=== PATIENT | female | born 1990 | race Caucasian/White ===

== ENCOUNTER 2021-05-07 13:02 | Emergency (ER) | payer OTHER ==
[~2021-05-07] VITALS: Ht 165.1 cm; Wt 77.1 kg
[2021-05-07] MEDS ORDERED: AVIANE1 EACH PO (13:16)
[2021-05-07] MEDS ORDERED: OMEPRAZOLE20 MG PO (14:58)
--- NOTE | 2021-05-07 17:36 | EKG ---
[facility] [address] [facility] [place], [place] [address] Signed Normal sinus rhythm ST \T\ T wave abnormality, consider lateral ischemia Abnormal ECG No previous ECGs available Confirmed by GAURANG STEWART MD ([id number]) on 05/07/2021 5:35:56 PM Electronically Signed By: GAURANG STEWART MD 05/07/21 1736 PATIENT NAME: LAURAFLACO Electrocardiogram DATE OF : [birth year] PHYSICIAN: GAURANG STEWART MD REPORT #: [id number] REPORT IS CONFIDENTIAL AND NOT TO BE RELEASED WITHOUT AUTHORIZATION
== END 2021-05-07 15:13 | disposition home or self-care (01) ==
LOC: ED 13:02
DX: K21.9 Gastro-esophageal reflux disease without esophagitis (principal)
CPT/HCPCS: 71045; 80053; 83690; 84484; 85025; 93005; 93010; 99285-25

== ENCOUNTER 2024-03-15 07:03 | Day surgery (SDC) | payer OTHER ==
[2024-03-09 09:13] VITALS: BP 119/69
[~2024-03-15] VITALS: Ht 165.1 cm; Wt 93.2 kg
[~2024-03-15 07:03] MED LIST: AVIANE1 EACH PO; B COMPLEX1 EACH PO; CEFAZOLIN SODIUM 2 GM/20 ML SYR IV SCH; HEParin SOD (PORCINE) 5,000 UNIT/0.5 ML SYR SUB-Q SCH; IBLOOD GLUCOSE TEST STRIP 1 EA TEST VI PRN; IRON18 MG PO; LACTATED RINGER'S 1,000 ML IV SCH; LIDOCAINE HCL 1% 5 ML SDV INJ ONE; NUVARING VAGIN1 EACH VAGINAL; OMEPRAZOLE20 MG PO; PROBIOTIC1 EAC8 PO; PROZAC40 MG PO; VITAMIN C100 MG PO; VITAMIN D210 MCG PO
[2024-03-15 07:14] VITALS: BP 132/82
[2024-03-15] MEDS ORDERED: CHILDREN'S5 MG/5 M1 PO (07:16)
[2024-03-15] MEDS ORDERED: DEXAMETHASONE SOD PHOS 4 MG/ML VIAL ONE (07:36)
[2024-03-15] MEDS ORDERED: fentaNYL citrate 100 MCG/2 ML VIAL ONE (07:36)
[2024-03-15] MEDS ORDERED: ondansetron HCL 4 MG/2 ML VIAL ONE (07:36)
[2024-03-15] MEDS ORDERED: propofoL 200 MG/20 ML VIAL ONE (07:36)
[2024-03-15] MEDS ORDERED: KETOROLAC TROMETHAMINE 30 MG/ML VIAL ONE (07:36)
[2024-03-15] MEDS ORDERED: LIDOCAINE HCL 2% 20 MG/ML VIAL INJ ONE (07:36)
[2024-03-15] MEDS ORDERED: MIDAZOLAM HCL 2 MG/2 ML VIAL ONE (07:36)
[2024-03-15] MEDS ORDERED: LIDOCAINE HCL 2% 5 ML SDV ONE ×2 (07:37→07:39)
[2024-03-15] MEDS ORDERED: ROCURONIUM BROMIDE 50 MG/5 ML SYR ONE ×2 (08:26→09:47)
[2024-03-15] MEDS ORDERED: dexmedeTOMIDine HCl 200 MCG/2 ML VIAL ONE (09:20)
[2024-03-15] MEDS ORDERED: KETAMINE in NS 50 MG/5 ML SYR ONE (09:20)
[2024-03-15] MEDS ORDERED: ACETAMINOPHEN 1,000 MG/100 ML VIAL ONE (10:13)
[2024-03-15] MEDS ORDERED: FLUORESCEIN SODIUM 500 MG/5 ML ML ONE (10:14)
[2024-03-15] MEDS ORDERED: SUGAMMADEX SODIUM 200 MG/2 ML ML ONE (10:20)
[2024-03-15] MEDS ORDERED: fentaNYL citrate 50 MCG/ML SDV IV PRN (10:30)
[2024-03-15] MEDS ORDERED: NALOXONE HCL 0.4 MG SYR IV PRN ×2 (10:30→10:45)
[2024-03-15] MEDS ORDERED: ondansetron HCL 4 MG/2 ML VIAL IV PRN ×2 (10:30→10:45)
[2024-03-15] MEDS ORDERED: HYDROmorphone HCL 1 MG/ML SYR IV PRN (10:30)
[2024-03-15] MEDS ORDERED: METOCLOPRAMIDE HCL 10 MG/2 ML SDV IV PRN (10:45)
[2024-03-15] MEDS ORDERED: MORPHINE SULFATE 10 MG/ML VIAL IV PRN (10:45)
[2024-03-15] MEDS ORDERED: MAGNESIUM HYDROXIDE/AL HYDROX 30 ML CUP PO PRN (10:45)
[2024-03-15] MEDS ORDERED: SIMETHICONE 125 MG TABLET CHEWABLE PO PRN (10:45)
[2024-03-15] MEDS ORDERED: OXYCODONE/APAP 5/325 TAB PO PRN (10:45)
[2024-03-15] MEDS ORDERED: FAMOTIDINE 20 MG/ 2 ML VIAL IV PRN (10:45)
--- NOTE | 2024-03-15 11:10 | NUR ---
03/15/24 Chin0 Vilma Espinoza 1035-PT ARRIVED TO PACU SLEEPING, BUT AROUSABLE, AND WITH SATS STABLE ON RA AT 90-92%. NO VAGINAL DRAINAGE NOTED AND 3 TROCHAR SITES WITH DRSG'S ARE CDI. PT EASILY FALLS BACK ASLEEP AFTER AROUSAL. 1037-SATS DECREASED TO 89-90%. PT INSTRUCTED TO DEEP BREATH AND COUGH. PILLOW PROVIDED TO HOLD TO ABD TO REDUCE PAIN WITH COUGHING. HOB ALSO ELEVATED TO APPROX 30 DEGREES TO HELP FACILITATE BREATHING. 1039-PERIPAD PLACED. NO DRAINAGE PRESENT ON CHUX PAD WHEN PLACED. 1050-SATS CONT TO DECREASE TO 88-89% ON RA WHEN PT DOZING ON AND OFF. 2L/NC PLACED. SATS IN MID TO UPPER 90'S WITH O2 IN PLACE. RR EVEN AND UNLABORED. 1059-PT WAKING MORE AND REPORTS 5/10 PAIN IN LOWER ABD AREA. PT TIRATED TO RA. SATS REMAIN STABLE AT 94% OR GREATER ON RA.
[2024-03-15] MEDS ORDERED: fentaNYL citrate 50 MCG/ML SDV ONE (11:11)
[2024-03-15] MEDS ORDERED: fentaNYL citrate 100 MCG/2 ML VIAL IV PRN (11:15)
[2024-03-15 11:56] VITALS: BP 117/70
--- NOTE | 2024-03-15 12:01 | NUR ---
YUVAL 1155: PT IS BACK TO DS FROM PACU. SHE IS BACK TO HER BASELINE. SHE REPORTS NO NAUSEA AND PAIN 7/10. BENITEZ BALOON IS EMPTIED OF 10ML NS. BENITEZ IS REMOVED WITHOUT ISSUES, WITH APPROX 50MLS OF NEON YELLOW URINE IN THE BAG. PT IS GIVEN WATER, HOT TEA, AND SALTINES AT THE BEDSIDE. CALL LIGHT IS WITHIN REACH. DC CRITERIA IS REVIEWED WITH PT.
[2024-03-15] MEDS ORDERED: SIMETHICONE 125 MG TABLET CHEWABLE PO SCH (13:00)
[2024-03-15 13:06] VITALS: BP 118/75
--- NOTE | 2024-03-15 13:07 | NUR ---
LE 1255: PT WOULD LIKE TO GET UP TO USE THE BATHROOM. SHE IS UP OOB WITH STAND BY ASSIST. SHE AMBUALTES TO THE BATHROOM INDEPENDENTLY. LE 1300: PT IS ABLE TO VOID 300MLS OF BLOOD TINGED URINE. SHE DOES HAVE A COUPLE BLOOD CLOTS. SHE AMBULATES BACK TO BED. SHE HAS BEEN ABLE TO TOLERATE WATER, SALTINES, AND TEA. SHE WOULD LIKE SOME APPLE SAUCE AND MOTRIN FOR PAIN.
--- NOTE | 2024-03-15 13:39 | NUR ---
YUVAL Abreu5: DR. RAMOS IS IN THE ROOM TO TALK WITH PT. SHE REPORTS THAT HER BACK PAIN HAS IMPROVED, SHE ONLY HAS SOME CRAMPING. SHE IS EDUCATED THAT PART OF THAT COULD BE FROM HAVING HER BELLY INFALTED WITH GAS. THE MORE SHE BELCHES OR PASSES GAS, THE BETTER IT SHOULD FEEL
--- NOTE | 2024-03-15 13:51 | NUR ---
LE 1345: PT IS GIVEN WRITTEN AND VERBAL DC INSTRUCTIONS. QUESTIONS ARE ASKED AND ANSWERED. SHE VERBALIZES UNDERSTANDING. SHE IS EDUCATED ON HOW TO BEST DRESS HERSELF AND TO OPEN HER CURTAIN WHEN SHE IS READY. LE 1350: PT'S MOM IS CALLED AND NOTIFIED THAT PT IS READY TO GO HOME. SHE WILL BE HERE IN APPROX 15 MINUTES.
[2024-03-15] MEDS ORDERED: IBUPROFEN 800 MG TAB PO SCH (14:00)
--- NOTE | 2024-03-21 19:02 | OR ---
[address] [address] Signed DATE OF OPERATION: 03/15/2024 SURGEON: Teresita Holt DO PREOPERATIVE DIAGNOSES: 1. Dysmenorrhea. 2. Abnormal uterine bleeding. 3. History of endometriosis. POSTOPERATIVE DIAGNOSES: 1. Dysmenorrhea. 2. Abnormal uterine bleeding. 3. History of endometriosis. 4. No evidence of residual gross endometriosis. PROCEDURES PERFORMED: 1. Total laparoscopic hysterectomy. 2. Cystoscopy. INFORMATION TECHNOLOGY PROJECT MANAGER: Milvia Hinds MD ANESTHESIA: General. ESTIMATED BLOOD LOSS: 10 mL. SPECIMEN: Uterus and cervix. DRAINS: Barboza to gravity. PACKING: None. FINDINGS: Normal external genitalia with normal clitoris urethral meatus, bilateral Masury's and Bartholin's glands. Normal vagina and cervix. On laparoscopy, normal uterus and Electronically Signed By: TERESITA HOLT DO (JD) 03/21/241901 PATIENT NAME: FLACO SHAH OPERATIVE REPORT DATE OF : [birth year] REPORT #: [id number] PHYSICIAN: TERESITA HOLT DO (JD) PCP: DIMPLE WALLS NP REPORT IS CONFIDENTIAL AND NOT TO BE RELEASED WITHOUT AUTHORIZATION [facility] [address] [place] [id number] Signed ovaries. Fallopian tube surgically absent. No evidence of residual gross endometriosis after careful evaluation of peritoneal surfaces. Excellent apical support and hemostasis appreciated at the end of the case. On cystoscopy, normal bladder with bilateral ureteral jets. INDICATIONS: Ms. Shah is a very pleasant 33-year-old G0 female with a history of dysmenorrhea, abnormal bleeding, and endometriosis that had previously been excised. The patient failed continued therapy of her pelvic pain and bleeding with NuvaRing following a bilateral salpingectomy and the patient requested definitive treatment with total laparoscopic hysterectomy. Risks, benefits, and alternatives were discussed in detail with the patient. The patient understands and wished to proceed with the procedure. DESCRIPTION OF PROCEDURE: The patient was taken to the OR where a time-out was performed to confirm correct patient and correct procedure. General anesthesia was adequately established. The patient was prepped and draped in the dorsal lithotomy position with feet in Yellofin stirrups. ICPs were on and running. The patient received Ancef 2 g as well as heparin 5000 units preoperatively based on scoring. A Barboza catheter was inserted. A weighted speculum was placed in the vagina and the anterior lip of the cervix was grasped with an Allis clamp. The cervix was serially dilated using Hegar dilators and a VCare uterine manipulator was placed without difficulty. The surgeon's gloves were changed and attention was turned to the abdomen. Just inferior to the umbilicus, the skin was infiltrated with 0.25% Marcaine with epinephrine and a curvilinear incision was made. The fascia was then grasped with hemostats, elevated, and entered sharply. Stay suture of 0 Vicryl was placed in the superior and inferior edges of the fascial incision and the peritoneum was entered bluntly. A Devon operative port was placed without difficulty and pneumoperitoneum was established. Survey of the abdomen and pelvis was performed demonstrating normal anatomy, absent fallopian tubes for history of bilateral salpingectomy, and no evidence of gross residual endometriosis. A 5 mm assist port was placed in the left lower quadrant under direct visualization and an 8 mm expanding port was placed in the right lower quadrant under direct visualization without complication. Attention was then turned to the hysterectomy. The right utero-ovarian ligament was fulgurated and divided with LigaSure device with excellent hemostasis. The right round ligament was fulgurated and divided. The leaves of the broad ligament were divided from the midportion of the round ligament to the edge of the vaginal cup anteriorly and across the bladder and posteriorly across the cervix. The uterine vessels were identified, fulgurated and divided with excellent hemostasis. The process was repeated on the left side with division of the utero-ovarian ligament, round ligament, division of the leaves of the broad ligament, fulguration and division of the uterine vessels. The uterus was then blanched and decision was made to proceed with colpotomy. Colpotomy was performed dissecting along the edge of the vaginal cup using the Sonicision device. Electronically Signed By: TERESITA HOLT DO (JD) 03/21/24 190 PATIENT NAME: FLACO SHAH OPERATIVE REPORT DATE OF : [birth year] REPORT #: [id number] PHYSICIAN: TERESITA HOLT DO (JD) PCP: DIMPLE WALLS NP REPORT IS CONFIDENTIAL AND NOT TO BE RELEASED WITHOUT AUTHORIZATION [address] [address] Signed The uterus and cervix were delivered through the vagina and sent to pathology for further evaluation. The vagina was then stuffed with a wet lap inside of a surgical glove to maintain pneumoperitoneum. A small amount of paracervical vessels were noted to be oozing and this was made hemostatic with LigaSure device. Once hemostasis was appreciated, colpotomy was repaired using V-Loc suture with an Endostitch device with careful attention to incorporate the uterosacral ligaments and to also incorporate the vaginal epithelium with each bite. Excellent hemostasis and apical support was appreciated. The pelvis was irrigated, found to be hemostatic. Pneumoperitoneum was reduced. Trocars were removed and infraumbilical fascia was repaired using 0 Vicryl in a running nonlocked manner. Stay sutures were plicated to reinforce the fascial closure. Skin was reapproximated with 3-0 Vicryl Rapide. Attention was then turned to cystoscopy. The Barboza catheter was removed and 70-degree cystoscope was placed in the urethral meatus and advanced under direct visualization into the bladder. Normal bladder with bilateral ureteral jets appreciated. The bladder was drained. Barboza catheter was reinserted and the patient was taken to PACU in good and stable condition. Sponge, needle, and instrument count were correct x2 at the end of the procedure. Dr. Hinds was present and participated in all portions of the procedure. DO TOR Anne/MODL /[id number] Copies: ~ Electronically Signed By: TERESITA HOLT DO (JD) 03/21/24 1902 PATIENT NAME: GUILLERMO SHAHZOILA CHAVEZ OPERATIVE REPORT DATE OF : [birth year] REPORT #: [id number] PHYSICIAN: TERESITA HOLT (TOÑO) DO PCP: DIMPLE WALLS NP REPORT IS CONFIDENTIAL AND NOT TO BE RELEASED WITHOUT AUTHORIZATION
== END 2024-03-15 13:55 | disposition home or self-care (01) ==
LOC: DS 07:03 → OPS 07:03 → DS 09:15 → OPS 11:00
PROVIDERS: ATTEND Obstetrics & Gynecology
PROC: 0UT94ZZ Resection of Uterus, Percutaneous Endoscopic Approach (ICD-10-PCS; principal; 2024-03-15 09:15)
DX: N80.9 Endometriosis, unspecified (principal); N93.9 Abnormal uterine and vaginal bleeding, unspecified; N94.6 Dysmenorrhea, unspecified; Z79.899 Other long term (current) drug therapy
CPT/HCPCS: 00840; A9270; J0131; J0690; J1100; J1644; J1885; J2001; J2250; J2405; J2704; J3010; J3490; J7121